=== PATIENT | male | born 1960 | race Caucasian/White ===

== ENCOUNTER 2020-02-11 19:47 | Emergency (ER) | payer OTHER ==
[~2020-02-11] VITALS: Ht 177.8 cm; Wt 111.1 kg
[~2020-02-11 19:47] MED LIST: PERCOCET 5-3251 EACH PO
[2020-02-11] MEDS ORDERED: ASPIRIN PO (19:55)
[2020-02-11 20:54] LABS: ABSOLUTE NEUTROPHILS 12.3 thou/uL (1.4-8.2); BASOPHILS 0.8 % (0.0-2.0); EOSINOPHILS 0.9 % (0.0-3.0); HEMATOCRIT 43.9 % (42.0-52.0); HEMOGLOBIN 15.3 gm/dL (14.0-18.0); LYMPHOCYTES 7.1 % (24.0-44.0); MCH 34.1 pg (26.0-34.0); MCHC 34.8 g/dL (28.0-37.0); MCV 98.2 fL (80.0-100.0); MONOCYTES 4.8 % (1.0-8.0); PLATELET COUNT 369 thou/uL (150-400); POLYS 86.4 % (36.0-66.0); RBC 4.47 mil/uL (4.50-6.00); RDW 13.5 % (10.5-14.5); WBC 14.2 thou/uL (4.0-11.0)
[2020-02-11 21:00] LABS: ANION GAP 9 mmol/L (7-16); BUN 15 mg/dL (7-18); CALCIUM 8.8 mg/dL (8.5-10.1); CHLORIDE 100 mmol/L (98-107); CO2 25 mmol/L (21-32); CREATININE 0.7 mg/dL (0.7-1.3); GLUCOSE 134 mg/dL (74-106); POTASSIUM 3.9 mmol/L (3.5-5.1); SODIUM 134 mmol/L (136-145)
[2020-02-11 21:10] LABS: ALBUMIN 3.8 g/dL (3.4-5.0); SGOT 28 U/L (15-37); SGPT 58 U/L (30-65); TOTAL BILIRUBIN 0.4 mg/dL (<0.1-1.0); TOTAL PROTEIN 7.8 g/dL (6.4-8.2); TROPONIN-I <0.06 ng/mL (<0.06)
[2020-02-11] MEDS ORDERED: ZOFRAN ODT4 MG PO (21:39)
[2020-02-11] MEDS ORDERED: MECLIZINE HCL25 M1 PO (21:39)
[2020-02-11 21:50] VITALS: BP 161/100
--- NOTE | 2020-02-13 07:55 | EKG ---
[facility] [place] [address] ELECTROCARDIOGRAM REPORT Name: PEPE DIAZ Room #: DEP [facility]#: [id number] Admission: 02/11/20 Attend Phys: Discharge: 02/11/20 Date of : 64 Report #: [id number] THIS REPORT FOR: cc: FAM - No family physician/PCP NO FAMILY PHYSICIAN or PCP Emilio Escobar MD [facility] THIS REPORT FOR: //name// [facility] ED Test Date: 2020-02-11 Test Time: 20:08:08 Pat Name: PEPE DIAZ Department: Room: Gender: [employer]ile [employer] Technician: [facility] : 1960 Requested By: Jaun Winston Order Number: [id number] MD: Emilio Escobar Measurements Intervals [place] Rate: 107 P: NE: QRS: -11 QRSD: 96 T: 100 QT: 336 QTc: 449 Interpretive Statements Sinus tachycardia Abnormal R-wave progression, late transition Nonspecific T abnormalities Compared to ECG 08/16/2007 12:34:16 T-wave abnormality now present Electronically Signed On 02-13-2020 7:54:00 CDT by Emilio Escobar [email or web address] <ELECTRONICALLY SIGNED> By: Emilio Escobar MD, FACC 02/13/20 0754 07 07 Emilio Escobar MD, FAC /EPI
== END 2020-02-11 21:30 | disposition home or self-care (01) ==
LOC: ER 19:47
PROVIDERS: Emergency Medicine
DX: R42 Dizziness and giddiness (principal); R11.0 Nausea; Z79.82 Long term (current) use of aspirin; Z88.0 Allergy status to penicillin